=== PATIENT | female | born 1990 ===

== ENCOUNTER 2017-03-29 16:42 | Emergency (ER) | payer OTHER ==
[2017-03-29 16:48] VITALS: BP 146/87; PULSE 80; RESP 16; TEMP 98.7; O2SAT 100
[2017-03-29] MEDS ORDERED: Lidocaine 1% Inj (20ml) IJ ONE (17:16)
[2017-03-29] MEDS ORDERED: Lidocaine 1% Inj (20ml) ONE (17:24)
--- NOTE | 2017-03-29 17:47 | ED PDOC ---
Upper Extremity Pain/Injury Time Seen by Provider: 03/29/17 17:05 Chief Complaint (Nursing): Abnormal Skin Integrity Chief Complaint (Provider): Laceration to Finger Left Hand History Per: Patient History/Exam Limitations: no limitations Onset/Duration Of Symptoms: Mins Current Symptoms Are (Timing): Still Present Additional Complaint(s): Dong Pederson is a 26 year old right hand dominant female that presents to the ED with a chief complaint of a laceration to her left pointer finger that she sustained earlier today while at school, as a result of a cut [employer] knife. Tetanus not UTD. Past Medical History Reviewed: Historical Data, Nursing Documentation, Vital Signs Vital Signs: Last Vital Signs Temp 98.7 F 03/29/17 16:46 Pulse 80 03/29/17 16:46 Resp 16 03/29/17 16:46 BP 146/87 03/29/17 16:46 Pulse Ox 100 03/29/17 16:46 - Family History Family History: States: Unknown Family Hx - Allergies Allergies/Adverse Reactions: Allergies Allergy/AdvReac Type Severity Reaction Status Date / Time No Known Allergies Allergy Verified 03/29/17 16:46 Review of Systems Musculoskeletal: Positive for: Hand Pain (laceration to left pointer finger) Physical Exam - Reviewed Nursing Documentation Reviewed: Yes Vital Signs Reviewed: Yes - Physical Exam Appears: Positive for: Non-toxic, No Acute Distress Head Exam: Positive for: ATRAUMATIC, NORMOCEPHALIC Skin: Positive for: Normal Color, Warm Eye Exam: Positive for: Normal appearance, EOMI, PERRL Pulses-Radial (L): 2+ Pulses-Radial (R): 2+ Extremity: Positive for: Normal ROM, Other (2.75 cm deep linear laceration present to medial distal phalanx of left index finger. Nail bed not involved.) Neurologic/Psych: Positive for: Alert, Oriented. Negative for: Motor/Sensory Deficits - ECG O2 Sat by Pulse Oximetry: 100 (RA) Pulse Ox Interpretation: Normal Medical Decision Making Medical Decision Making: Impression: Left Index Finger Laceration Plan: * Tetanus Vaccination 0.5 mL IM * Laceration Repair * Reevaluation 19:25 Patient tolerated procedure well with no immediate complications. Patient advised to follow up with PMD in two days. Patient instructed on how to care for stitches, is stable for discharge home. Scribe Attestation: Documented by Lillian Franco, acting as a scribe for Darya Holm PA-C. Provider Scribe Attestation: All medical record entries made by the Scribe were at my direction and personally dictated by me. I have reviewed the chart and agree that the record accurately reflects my personal performance of the history, physical exam, medical decision making, and the department course for this patient. I have also personally directed, reviewed, and agree with the discharge instructions and disposition. Procedures - Laceration/Wound Repair Left Finger Wound Length (cm): 2.5 Wound's Depth, Shape: linear Wound Explored: clean Anesthesia: 1% Lidocaine (Given for digital block) Suture Size/Type: 4:0, nylon Number of Sutures: 5 (interrupted, 2 of the sutures were into the nail) Wound Complexity: Simple Sterile Dressing Applied?: Yes Disposition - Clinical Impression Clinical Impression: Laceration - Patient ED Disposition Is Patient to be Admitted: No - Disposition Disposition: Routine/Home Disposition Time: 19:25 Condition: STABLE Additional Instructions: f/u with your pmd in 2 days for wound check/evaluation of wound F/U WITH ED/PMD/URGENT CARE FOR REMOVAL OF SUTURES IN 7 TO 10 DAYS. Instructions: Care For Your Stitches (ED), Laceration (ED) Forms: [employer] (Thai)
== END 2017-03-29 19:26 | disposition home or self-care (01) ==
LOC: H.ER 16:42
DX: S61.211A Laceration without foreign body of left index finger without damage to nail, initial encounter (principal); Z23 Encounter for immunization; W26.0XXA Contact with knife, initial encounter